=== PATIENT | male | born 1960 | race African-American/Black ===

== ENCOUNTER 2020-08-14 07:52 | Outpatient (CLI) | payer BC | END 2020-08-14 07:53 | disposition home or self-care (01) | LOC: BICCT 07:52 | PROVIDERS: ATTEND Internal Medicine Hematology & Oncology | DX: C49.A3 Gastrointestinal stromal tumor of small intestine (principal); C78.7 Secondary malignant neoplasm of liver and intrahepatic bile duct; N28.89 Other specified disorders of kidney and ureter | CPT/HCPCS: 71260 ==

== ENCOUNTER 2020-11-17 07:54 | Outpatient (CLI) | payer BC ==
[2020-11-17] MEDS ORDERED: Iopamidol-370 76% 500 ML 1 ML ONE (09:17)
== END 2020-11-17 07:55 | disposition home or self-care (01) ==
LOC: BICCT 07:54
PROVIDERS: ATTEND Internal Medicine Hematology & Oncology
DX: C49.A3 Gastrointestinal stromal tumor of small intestine (principal); C78.7 Secondary malignant neoplasm of liver and intrahepatic bile duct; R59.0 Localized enlarged lymph nodes; K76.9 Liver disease, unspecified; K63.89 Other specified diseases of intestine
CPT/HCPCS: 71260; 74177; Q9967

== ENCOUNTER 2021-03-29 08:23 | Outpatient (CLI) | payer BC ==
[2021-03-29] MEDS ORDERED: Iopamidol-370 76% 500 ML 1 ML ONE (09:29)
== END 2021-03-29 08:24 | disposition home or self-care (01) ==
LOC: BICCT 08:23
PROVIDERS: ATTEND Internal Medicine Hematology & Oncology
DX: C78.7 Secondary malignant neoplasm of liver and intrahepatic bile duct (principal); C49.A3 Gastrointestinal stromal tumor of small intestine; K76.9 Liver disease, unspecified; N42.89 Other specified disorders of prostate
CPT/HCPCS: 71260; 74177; 82565; Q9967

== ENCOUNTER 2021-09-27 08:20 | Outpatient (CLI) | payer BC ==
[2021-09-27] MEDS ORDERED: Iopamidol-370 76% 500 ML 1 ML ONE (15:42)
== END 2021-09-27 08:21 | disposition home or self-care (01) ==
LOC: BICCT 08:20
PROVIDERS: ATTEND Internal Medicine Hematology & Oncology
DX: C49.A3 Gastrointestinal stromal tumor of small intestine (principal); C78.7 Secondary malignant neoplasm of liver and intrahepatic bile duct; J90 Pleural effusion, not elsewhere classified; R93.5 Abnormal findings on diagnostic imaging of other abdominal regions, including retroperitoneum; R59.0 Localized enlarged lymph nodes
CPT/HCPCS: 71260; 74177; 82565; Q9967

== ENCOUNTER 2022-03-28 08:29 | Outpatient (CLI) | payer BC ==
[2022-03-28] MEDS ORDERED: Iopamidol-370 76% 500 ML 1 ML ONE (08:48)
== END 2022-03-28 08:30 | disposition home or self-care (01) ==
LOC: BICCT 08:29
PROVIDERS: ATTEND Internal Medicine Hematology & Oncology
DX: C49.A3 Gastrointestinal stromal tumor of small intestine (principal); C78.7 Secondary malignant neoplasm of liver and intrahepatic bile duct; J90 Pleural effusion, not elsewhere classified; I31.39 Other pericardial effusion (noninflammatory); R18.8 Other ascites; K63.89 Other specified diseases of intestine
CPT/HCPCS: 71260; 74177; 82565; Q9967